=== PATIENT | female | born 1930 | race Caucasian/White ===

== ENCOUNTER 2017-04-10 04:12 | Inpatient (IN) | payer OTHER, MEDICARE ==
[~2017-04-10] VITALS: Ht 157.5 cm; Wt 83.1 kg
[~2017-04-10 04:12] MED LIST: BISOPROLOL FUMAR5 MG PO; COLACE100 MG PO; LORTAB 5-325 M1 EACH PO; LOVASTATIN20 MG PO; MEDROL DOSEPAK4 MG PO; MELOXICAM15 MG PO; ONE DAILY FOR1 EAC3 PO; RANITIDINE HCL300 MG PO; SKELAXIN800 MG PO; TRIAMTERENE-HC1 EACH PO; TYLENOL EXTRA500 MG PO; VITAMIN D-3 401 EACH PO
[2017-04-10 04:38] LABS: HEMATOCRIT 32.5 % (36.0-46.0); MCH 32.8 PG (29.0-34.0); MCHC 34.5 G/DL (30.0-36.0); MCV 95.3 FL (83-99); MEAN PLAT.VOLUME 10.3 uM^3 (9.5-12.4); PLATELET COUNT 197 K/uL (156-360); RBC DIS.WIDTH-CV 12.9 % (11.8-14.6); RED BLOOD COUNT 3.41 M/uL (3.80-5.20); WHITE BLOOD COUNT 7.1 K/uL (4.1-10.2)
[2017-04-10 04:58] LABS: CHLORIDE 94 mEq/L (99-109); POTASSIUM 3.7 mEq/L (3.7-5.4); SODIUM 131 mEq/L (136-147)
[2017-04-10 05:00] LABS: GLUCOSE 104 mg/dL (70-99)
[2017-04-10 05:01] LABS: ANION GAP 10 MEQ/L (2-14)
[2017-04-10 05:04] LABS: GFR ESTIMATE (CALCULATED) 45 mL/min/; UREA NITROGEN (BUN) 22 mg/dL (9-23)
[2017-04-10 05:09] LABS: TROP-I INTERPRETATION NEGATIVE; TROPONIN-I 0.05 ng/mL (0.0-0.30)
[2017-04-10] MEDS ORDERED: FOSAMAX70 MG PO (05:41)
[2017-04-10 07:31] VITALS: BP 152/67
[2017-04-10 10:42] VITALS: BP 120/60
[2017-04-10 12:42] LABS: TROP-I INTERPRETATION POSITIVE; TROPONIN-I 0.87 ng/mL (0.0-0.30)
[2017-04-10 12:47] LABS: IRON 79 MCG/DL (35-150)
[2017-04-10 12:55] LABS: FERRITIN 109 NG/ML (10-291)
[2017-04-10] MEDS ORDERED: BISOPROLOL FUMAR5 MG PO (14:06)
[2017-04-10 15:30] VITALS: BP 133/63
[2017-04-10 17:44] LABS: TROP-I INTERPRETATION POSITIVE; TROPONIN-I 2.68 ng/mL (0.0-0.30)
[2017-04-10 20:11] LABS: INTER. NORMALIZED RATIO 1.1; PROTHROMBIN TIME 11.7 SEC (10.2-12.9)
[2017-04-10 20:14] LABS: PTT 31.4 SEC (25-37)
[2017-04-10 23:49] VITALS: BP 118/59
[2017-04-11] VITALS (7 sets, daily range): BP systolic 117–188; BP diastolic 57–93
[2017-04-11 06:30] LABS: ANION GAP 8 MEQ/L (2-14); CHLORIDE 98 MEQ/L (99-109); POTASSIUM 3.8 MEQ/L (3.7-5.4); SAMPLE HEMOLYSIS CHECK 0; SAMPLE ICTERIC CHECK 0; SAMPLE LIPEMIA CHECK 0; SODIUM 134 MEQ/L (136-147)
[2017-04-11 06:35] LABS: GFR ESTIMATE (CALCULATED) 45 mL/min/; GLUCOSE 96 mg/dL (70-99); UREA NITROGEN (BUN) 17 mg/dL (9-23)
[2017-04-11 06:51] LABS: TROP-I INTERPRETATION POSITIVE; TROPONIN-I 2.91 ng/mL (0.0-0.30)
[2017-04-11 13:14] LABS: TROP-I INTERPRETATION POSITIVE; TROPONIN-I 2.23 ng/mL (0.0-0.30)
[2017-04-12 04:21] VITALS: BP 129/62
[2017-04-12 05:42] LABS: EOSINOPHIL (%) 3.3 % (0-5); EOSINOPHIL COUNT 0.2 K/uL (0-0.3); IMMATURE GRANULOCYTE (%) 0.1 % (0.0-0.7); INSTRUMENT ABS NEUTROPHIL CT 3.2 K/uL; LYMPHOCYTE COUNT 2.4 K/uL (1.0-2.8); MCH 32.3 PG (29.0-34.0); MCHC 33.7 G/DL (30.0-36.0); MCV 95.8 FL (83-99); MEAN PLAT.VOLUME 11.3 uM^3 (9.5-12.4); MONOCYTE (%) 11.4 % (3-12); MONOCYTE COUNT 0.8 K/uL (0-0.8); NEUTROPHIL (%) 48.5 % (45-76); NEUTROPHIL COUNT 3.2 K/uL (1.8-6.4); PLATELET COUNT 181 K/uL (156-360); RBC DIS.WIDTH-CV 13.2 % (11.8-14.6); RBC DIS.WIDTH-SD 45.7 % (39-53); RED BLOOD COUNT 3.13 M/uL (3.80-5.20); WHITE BLOOD COUNT 6.7 K/uL (4.1-10.2)
[2017-04-12 05:54] LABS: ALKALINE PHOSPHATASE 34 IU/L (3-129); ANION GAP 8 MEQ/L (2-14); CHLORIDE 101 MEQ/L (99-109); GFR ESTIMATE (CALCULATED) 50 mL/min/; GLUCOSE 91 mg/dL (70-99); POTASSIUM 3.8 MEQ/L (3.7-5.4); SAMPLE HEMOLYSIS CHECK 0; SAMPLE ICTERIC CHECK 0; SAMPLE LIPEMIA CHECK 0; SODIUM 136 MEQ/L (136-147); TOTAL BILIRUBIN 0.5 MG/DL (0.0-1.0); UREA NITROGEN (BUN) 15 mg/dL (9-23)
[2017-04-12 08:05] VITALS: BP 144/62
[2017-04-12] MEDS ORDERED: NITROSTAT0.4 MG SL (11:23)
[2017-04-12] MEDS ORDERED: IMDUR30 MG PO (11:23)
[2017-04-12] MEDS ORDERED: CLOPIDOGREL75 MG PO (11:23)
[2017-04-12] MEDS ORDERED: LISINOPRIL5 MG PO (11:43)
[2017-04-12 11:54] VITALS: BP 144/62
== END 2017-04-12 13:48 | disposition home or self-care (01) | DRG 281 ==
LOC: EME → EDBD 04:12 → EME 04:12 → EDOF 05:24 → ENRESERV 05:25 → 5WEST 07:22 → 4EAST 13:07 → 5WEST 13:07 → ENRESERV 13:10 → 4EAST 15:11
PROVIDERS: Emergency Medicine; Hospitalist; Internal Medicine; Internal Medicine Cardiovascular Disease; Nurse Practitioner Adult Health
DX: I21.4 Non-ST elevation (NSTEMI) myocardial infarction (principal); E87.1 Hypo-osmolality and hyponatremia; I10 Essential (primary) hypertension; D64.9 Anemia, unspecified; E78.5 Hyperlipidemia, unspecified; M17.0 Bilateral primary osteoarthritis of knee; K21.9 Gastro-esophageal reflux disease without esophagitis; E78.00 Pure hypercholesterolemia, unspecified; Z79.02 Long term (current) use of antithrombotics/antiplatelets; Z79.83 Long term (current) use of bisphosphonates; Z88.6 Allergy status to analgesic agent; Z91.81 History of falling; Z68.35 Body mass index [BMI] 35.0-35.9, adult; Z72.0 Tobacco use; Z82.3 Family history of stroke
CPT/HCPCS: 71020; 78582; 80048; 80053; 82607; 82728; 83540; 84466; 84484; 85025; 85027; 85379; 85610; 85730; 93005; 93306; 93970; 99281; 99285; A9540; A9567; J1650; J7030